=== PATIENT | female | born 1955 | race Caucasian/White ===

== ENCOUNTER 2017-05-19 08:24 | Emergency (ER) | payer OTHER ==
[~2017-05-19] VITALS: Ht 162.6 cm; Wt 92.3 kg
[2017-05-19] VITALS (7 sets, daily range): BP systolic 116–179; BP diastolic 68–97; PULSE 78–87; RESP 12–26; O2SAT 93–98
--- NOTE | 2017-05-19 08:14 | ED.REPORT ---
HPI-Extremity Problem Upper Date of Service May 19, 2017 ED Provider: Kartik Roberts MD The pt is a 64 y/o female w/ a hx of HTN, and hyperlipidemia presenting to the ED via EMS due to a GLF. She was walking her dog, got pulled over, and landed on her R arm in her yard. She is reporting the pain being in her upper arm w/ 8/ 10 pain. EMS have given her 100 mcg of fentanyl and 5 mg of Valium. Nursing Notes Stated Complaint: UPPER ARM PAIN Chief Complaint: R arm trauma Nursing Notes Reviewed: Yes Allergies: Coded Allergies: Sulfa (Sulfonamide Antibiotics) (Verified Allergy, Unknown, 05/19/17) hydrocodone (Verified Allergy, Unknown, "doesnt work", 05/19/17) General Time Seen by MD: 08:14 Chief Complaint Arm injury right Hx Obtained From: Patient, EMS Arrived By: Ambulance Onset Occurred: Just prior to arrival Symptom Duration: Since onset Severity: Current: Pain level 8 out of 10 Recent Healthcare: No recent doctor visit, No recent hospitalization Similar Sx Previous: No Past Medical History Past Medical History HTN Hyperlipidemia Past Surgical History L knee replacement Smoking History Unknown if Ever Smoker Social History None reported Ambulatory Status Independent Review of Systems Musculoskeletal: Reports: Extremity pain (RUE ) Complete sys rev & neg: except as marked. Physical Exam Initial Vital Signs Vital Signs (First) Date Time Temp Pulse Resp B/P Pulse Ox O2 Delivery O2 Flow Rate FiO2 05/19/17 08:25 36.5 87 26 179/97 98 Room Air 05/19/17 09:30 2 Initial VS: Reviewed General/Constitutional: Well-developed, Well-nourished Head / Eyes: Atraumatic, Normocephalic, PERRL ENT: Mucous membranes moist, Conjunctiva normal, No scleral icterus Neck: Supple, Non-tender, Full range of motion Respiratory: Breath sounds normal, Clear to auscultation, No respiratory distress Cardiovascular: Regular rate & rhythm, Heart sounds normal, Intact distal pulses Skin: Warm, Dry, No cyanosis Neurologic: Alert, Oriented, Nonfocal Psychiatric: Mood/affect normal, Behavior normal, Normal thought content Upper Extremity / MS: No deformity, Neurologic intact, Vascular intact Interpretation & Diagnostics X-Ray Interpretation Xray Interpretation: IMPRESSION: Anterior right shoulder dislocation. Dictated by: Adriel Arevalo M.D. on 05/19/2017 at 9:19 Approved by: Adriel Arevalo M.D. on 05/19/2017 at 9:20 X-Ray Ordered: Shoulder right Interpretation / Wet Read by: Interpret - Radiologist Xray Interpretation: IMPRESSION: Successful closed reduction of right anterior shoulder dislocation, with posterolateral humeral head Hill-Sachs impaction fracture. Dictated by: Adriel Arevalo M.D. on 05/19/2017 at 10:34 Approved by: Adriel Arevalo M.D. on 05/19/2017 at 10:36 X-Ray Ordered: Shoulder right Interpretation / Wet Read by: Interpret - Radiologist Procedures Proced Mod Sedation/Analgesia Time: :37 Procedure Performed by: ED physician Sedation Time: Enter # minutes (12) Consent / Setup: Informed consent provided, Consent from patient, Consent from spouse, Time-out performed, Hand hygiene observed, Patient sitting up, Head of bed at 90 degrees Indication: Shoulder reduction Preparation: nuclear monitoring technician applied, Pulse oximeter applied, Constant attendance, IV access established, Procedure explained, End tidal CO2 mon applied VS Prior to Procedure: All vital signs normal Sedation: Sedation: Propofol Response During Procedure: Handled secretions adeq, Maintained airway well, Oxygenation stable, Sedation appropriate, Vital signs stable Complications During/After: None Reversal: None required Mental Status After Procedure: Alert, Oriented X3 Post-Procedure: Alert prior to discharge, Ambulatory with assist, Pt rtn pre- proc baseline, Vital signs normal Attestation: I performed procedure, I performed sedation Reduction Dislocated Shoulder Time: :37 Procedure Performed by: ED physician Consent / Setup: Informed consent provided, Consent from patient, Time-out performed, Pulse oximeter applied, Hand hygiene observed, Stand sterile technique Procedural Sedation/Analgesia: Sedation: Propofol Which Shoulder and Technique: Right shoulder Neurovascular: Intact pre-procedure, Intact post-procedure Post-Procedure / Complications: Reduced per examination, Procedure successful, Condition improved, Tolerated procedure well, Patient stable Re-Eval/Medical Decision Re-Evaluation/Progress #1: Time of Eval: 09:23 Re-Evaluation/Progress Note: Discussed plan to reduce shoulder. Discussed the risks and benefits of the planned sedation. Re-Evaluation/Progress #2: Time of Eval: 09:37 Re-Evaluation/Progress Note: Began sedation and shoulder reduction procedure. Re-Evaluation/Progress #3: Time of Eval: 10:15 Re-Evaluation/Progress Note: Rechecked pt who is feeling much better after the reduction. Counseled Regarding: Diagnosis, Lab results, Need for follow-up, When/why to return to ED Discharge & Departure Impression: Primary Impression: Dislocation of right shoulder joint Additional Impression: Hill Sachs deformity, right Disposition: Home Discharge Condition All VS Reviewed: Yes Condition: Stable Patient Instructions: Shoulder Dislocation (ED) Additional Instructions: Your shoulder was dislocated. It is now back in the proper position. There is an abnormality on the x-ray consistent with with what is known as a Hill-Sachs deformity, this is a mild compression fracture of the head of the humerus. This should heal on its own. For now I recommend that you keep the sling on all the time. If you remove it briefly to dress or they bathe, I recommend that you keep your elbow close to your side to prevent recurrent dislocation. Follow-up at the clinic in a few days to discuss ongoing management. For pain I recommend Tylenol 650 mg every 6 hours. For more severe pain I recommend hydrocodone/APAP one or 2 tablets every 6 hours as needed for pain. The hydrocodone/APAP has Tylenol in it as well. Each tablet contains 325 mg of Tylenol. Do not take more than 4000 mg of Tylenol in a 24-hour period to avoid Tylenol toxicity. Scribe Attestation Portions of this note were transcribed by Jacob Plasencia. I, Dr. Verdugo personally performed the history, physical exam and medical decision-making; I reviewed and confirmed the accuracy of the information in the transcribed note. Armando Verdugo MD May 19, 2017 08:14 Jacob Plasencia May 19, 2017 09:15
[2017-05-19] MEDS: HYDROmorphone 1 mg/mL Inj IVPUSH PRN ×2 (08:32→08:45)
--- NOTE | 2017-05-19 09:21 | DRSVH ---
PROCEDURE: X-RAY RIGHT SHOULDER, MINIMUM TWO VIEWS ([id number]) INDICATIONS: 62 year-old female with right shoulder injury after fall. TECHNIQUE: 3 views of the shoulder were acquired. COMPARISON: None. FINDINGS: Bones: There is anterior dislocation of the right humeral head with respect to the glenoid. There is mild acromioclavicular joint degeneration. No suspicious bony lesions. Visualized ribs appear intac t. Soft tissues: No suspicious soft tissue calcifications. IMPRESSION: Anterior right shoulder dislocation. Dictated by: Adriel Arevalo M.D. on 05/19/2017 at 9:19 Approved by: Adriel Arevalo M.D. on 05/19/2017 at 9:20
[2017-05-19] MEDS ORDERED: Propofol 10 mg/mL 20 mL Inj IVPUSH ONE (09:25)
--- NOTE | 2017-05-19 10:37 | DRSVH ---
PROCEDURE: X-RAY RIGHT SHOULDER, MINIMUM TWO VIEWS ([id number]) INDICATIONS: 62 year-old female with right shoulder dislocation, status post closed reduction. TECHNIQUE: 2 views of the shoulder were acquired. COMPARISON: [facility], CR, XR SHOULDER MIN 2VW RT, 05/19/2017, 8:57. FINDINGS: Bones: Glenohumeral joint is now in anatomic alignment after closed reduction. There is posterolatera l humeral head cortical irregularity, consistent with Hill-Sachs impaction fracture. There is mild ac romioclavicular joint degeneration. No suspicious bony lesions. Visualized ribs appear intact. Soft tissues: No suspicious soft tissue calcifications. IMPRESSION: Successful closed reduction of right anterior shoulder dislocation, with posterolateral h umeral head Hill-Sachs impaction fracture. Dictated by: Adriel Arevalo M.D. on 05/19/2017 at 10:34 Approved by: Adriel Arevalo M.D. on 05/19/2017 at 10:36
[2017-05-19] MEDS ORDERED: TRAM50TA2 PO (11:05)
[2017-05-19] MEDS ORDERED: Ondansetron 8 mg ODT Tablet PO ONE (11:35)
== END 2017-05-19 11:14 | disposition home or self-care (01) ==
LOC: SED 08:24 → EDBD 08:24 → SED 11:14
DX: S43.084A Other dislocation of right shoulder joint, initial encounter (principal); S42.291A Other displaced fracture of upper end of right humerus, initial encounter for closed fracture; W18.39XA Other fall on same level, initial encounter; Y93.K1 Activity, walking an animal; Y92.017 Garden or yard in single-family (private) house as the place of occurrence of the external cause; Y99.8 Other external cause status; I10 Essential (primary) hypertension; E78.5 Hyperlipidemia, unspecified; Z88.5 Allergy status to narcotic agent; Z88.2 Allergy status to sulfonamides
CPT/HCPCS: 23650; 73030; 94799; 96374; 96375; 99152; 99285; J1170; J2060; J2704